=== PATIENT | female | born 1990 | race Two or more races ===

== ENCOUNTER 2025-10-02 10:23 | Inpatient (IN) | payer MEDICAID, OTHER ==
[~2025-10-02] VITALS: Ht 157.5 cm; Wt 64.0 kg
[2025-10-02 13:17] LABS: Hematocrit 38.8 % (36.0-46.0); Hemoglobin 13.2 g/dL (12.2-16.2); Mean Corpuscular Hemoglobin 29.3 pg (28.0-32.0); Mean Corpuscular Volume 85.8 fL (80.0-100.0); Nucleated Red Blood Cells % 0.0 %
[2025-10-02 13:20] LABS: Urine Protein, UAD Negative (Negative)
[2025-10-02 13:24] LABS: Chloride 105 mmol/L (98-107); Potassium 4.3 mmol/L (3.5-5.1); Sodium 141 mmol/L (136-145)
[2025-10-02 13:25] LABS: Anion Gap 9 (5-15); Carbon Dioxide 27 mmol/L (20-31)
[2025-10-02 13:26] LABS: Calcium 10.0 mg/dL (8.7-10.4)
[2025-10-02 13:30] LABS: BUN/Creatinine Ratio 13.0 (10.0-20.0); Blood Urea Nitrogen 9 mg/dL (9-23); Glucose 95 mg/dL (74-106)
--- NOTE | 2025-10-02 13:34 | ED.PDOC ---
History of Present Illness HPI Comments 35-year-old female brought in by ambulance with a chief complaint of dizziness. Patient reports waking up at 8:30 a.m. this morning with dizziness, associated with near syncopal episode, yellow emesis, lower extremity shaking, left extremities numbness and a severe headache. Patient notes on having had a bowel movement status post waking up. Patient states on currently having healing to her upper and lower left extremities status post numbness. Denies any other symptoms at this time. Denies chills, fever, /D, SOB, CP. No other associated symptoms, modifiers, recent injuries or sick contacts present at this time. 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 Family History Family History: Reviewed,noncontributory to illness, Unknown Social History Smoker: Non-Smoker Alcohol: Denies ETOH Use Drugs: Denies Drug Use Lives In: Home Constitutional: denies: chills, diaphoresis, fatigue, fever, malaise, sweats, weakness, others EENTM: denies: blurred vision, double vision, ear bleeding, ear discharge, ear drainage, ear pain, ear ringing, eye pain, eye redness, hearing loss, mouth pain, mouth swelling, nasal discharge, nose bleeding, nose congestion, nose pain, photophobia, tearing, throat pain, throat swelling, voice changes, others Respiratory: denies: cough, hemoptysis, orthopnea, SOB at rest, shortness of breath, SOB with excertion, stridor, wheezing, others Cardiovascular: reports: syncope (Near syncopal); denies: chest pain, dizzy spells, diaphoresis, Dyspnea on exertion, edema, irregular heart beat, left arm pain, lightheadedness, palpitations, PND, others Gastrointestinal: reports: nausea, vomiting; denies: abdomen distended, abdominal pain, blood streaked bowels, constipated, diarrhea, dysphagia, difficulty swallowing, hematemesis, melena, poor appetite, poor fluid intake, rectal bleeding, rectal pain, others Genitourinary: denies: abnormal vagina bleeding, burning, dyspareunia, dysuria, flank pain, frequency, hematuria, incontinence, pain, , vagina discharge, urgency, others Neurological: reports: dizziness, headache, left sided numbness; denies: fainting, left sided weakness, numbness, paresthesia, pre-existing deficit, right sided numbness, right sided weakness, seizure, speech problems, tingling, tremors, weakness, others Musculoskeletal: denies: back pain, gout, joint pain, joint swelling, muscle pain, muscle stiffness, neck pain, others Integumetry: denies: bruises, change in color, change in hair/nails, dryness, laceration, lesions, lumps, rash, wounds, others Allergic/Immunocompromised: denies: Difficulty Healing, Frequent Infections, Hives, Itching, others Hematologic/Lymphatic: denies: anemia, blood clots, easy bleeding, easy bruising, swollen glands, others Endocrine: denies: excessive hunger, excessive sweating, excessive thirst, excessive urination, flushing, intolerance to cold, intolerance to heat, u nexplained weight gain, unexplained weight loss, others Psychiatric: denies: anxiety, bipolar disorder, depression, hopeless, panic disorder, schizophrenia, sleepless, suicidal, others All Other Systems: Reviewed and Negative Physical Exam General Appearance: No Apparent Distress, Normal HEENT: Normal ENT Inspection, Pharynx Normal, TMs Normal Neck: Full Range of Motion, Non-Tender, Normal, Normal Inspection Respiratory: Chest Non-Tender, Lungs Clear, No Accessory Muscle Use, No Respiratory Distress, Normal Breath Sounds Cardiovascular: No Edema, No JVD, No Murmur, No Gallop, Normal Peripheral P ulses, Regular Rate/Rhythm Breast Exam: Deferred Gastrointestinal: No Organomegaly, Non Tender, No Pulsatile Mass, Normal Bowel Sounds, Soft Genitalia: Deferred Pelvic: Deferred Rectal: Deferred Extremities: No calf tenderness, Normal capillary refill, Normal inspection, Normal range of motion, Non-tender, No pedal edema Musculoskeletal : Apperance: Normal Neurologic: Alert, shopping investigator II-XII nml as Tested, No Motor Deficits, Normal Affect, Normal Mood, No Sensory Deficits Cerebellar Function: Normal Reflexes: Normal Skin: Dry, Normal Color, Warm Lymphatic: No Adenopathy Was a procedure done? Was a procedure done?: No Differential Dx Considerations may include: mdm X-Ray, Labs, Meds, VS Vital Signs Date Time Temp Pulse Resp B/P (MAP) Pulse Ox O2 Delivery O2 Flow Rate FiO2 10/02/25 11:07 97.8 100 18 134/95 100 97.8 Lab Test 10/02/25 12:59 10/02/25 11:42 Range/Units White Blood Count 6.8 4.4-10.8 10^3/uL Red Blood Count 4.52 4.0-5.20 10^6/uL Hemoglobin 13.2 12.2-16.2 g/dL Hematocrit 38.8 36.0-46.0 % Mean Corpuscular Volume 85.8 80.0-100.0 fL Mean Corpuscular Hemoglobin 29.3 28.0-32.0 pg Mean Corpuscular Hemoglobin Concent 34.1 32.0-36.0 g/dL Red Cell Distribution Width 13.4 11.8-14.3 % Platelet Count 293 140-450 10^3/uL Mean Platelet Volume 7.6 6.9-10.8 fL Neutrophils (%) (Auto) 82.1 H 37.0-80.0 % Lymphocytes (%) (Auto) 12.9 10.0-50.0 % Monocytes (%) (Auto) 4.3 0.0-12.0 % Eosinophils (%) (Auto) 0.3 0.0-7.0 % Basophils (%) (Auto) 0.4 0.0-2.0 % Neutrophils # (Auto) 5.6 1.6-8.6 10 ^3/uL Lymphocytes # (Auto) 0.9 0.4-5.4 10 ^3/uL Monocytes # (Auto) 0.3 0-1.3 10 ^3/uL Eosinophils # (Auto) 0 0-0.8 10 ^3/uL Basophils # (Auto) 0 0-0.2 10 ^3/uL Nucleated Red Blood Cells 0.0 % Sodium Level 141 136-145 mmol/L Potassium Level 4.3 3.5-5.1 mmol/L Chloride Level 105 98-107 mmol/L Carbon Dioxide Level 27 20-31 mmol/L Anion Gap 9 5-15 Blood Urea Nitrogen 9 9-23 mg/dL Creatinine 0.69 0.550-1.02 mg/dL Glomerular Filtration Rate Calc 117 >90 mL/min BUN/Creatinine Ratio 13.0 10.0-20.0 Serum Glucose 95 74-106 mg/dL Calcium Level 10.0 8.7-10.4 mg/dL Troponin I High Sensitivity < 3 L </=34 ng/L Urine Color Light-yellow Yellow Urine Clarity Clear Clear Urine pH 7.0 5.0-9.0 Urine Specific [place] 1.006 1.001-1.035 Urine Protein Negative Negative Urine Ketones Negative Negative Urine Blood 2+ H Negative /uL Urine Nitrite Negative Negative Urine Bilirubin Negative Negative Urine Urobilinogen Normal Negative mg/dL Urine Leukocyte Esterase Trace Negative /uL Urine RBC 1 0 - 4 /hpf Urine Microscopic WBC 4 0-5 /HPF Urine Squamous Epithelial Cells Few <5 /hpf Urine Bacteria None seen None Seen /hpf Urine Glucose Normal Normal mg/dL Urine Test Negative Negative Time of 1ST Reevaluation: 13:30 Reevaluation 1ST: Unchanged Patient Education/Counseling: Diagnosis, Treatment, Prognosis Family Education/Counseling: Diagnosis, Treatment, Prognosis Additional Information MEDICAL DECISION MAKING (HIGH COMPLEXITY 28303): The patient is a 35-year-old previously healthy female presenting with near syncope and intermittent numbness and tingling of the left arm and leg, now resolved. Despite symptom resolution, her presentation is concerning for a suspected transient ischemic attack (TIA) or other neurologic process requiring urgent inpatient evaluation. Data Reviewed / Independent Interpretation: I independently reviewed all diagnostic studies obtained in the ED: CBC, CMP, and urinalysis were benign, without metabolic, infectious, or hematologic abnormalities. CT brain was independently interpreted by me and is benign, showing no acute hemorrhage, mass effect, midline shift, or early ischemia. Serial neurologic exams were performed and remained stable, though symptoms had already resolved by the time of evaluation. Even with normal studies, the transient unilateral sensory deficits combined with near-syncope represent a neurologically high-risk presentation. Assessment, Differential & Management: Differential diagnosis includes: Suspected TIA Early ischemic stroke not yet visible on CT Demyelinating disease (e.g., MS) Seizure with postictal sensory disturbance Complex migraine Cardiac arrhythmia or perfusion-related near syncope Anxiety or functional cause (diagnosis of exclusion) Given the unilateral sensory symptoms and near-syncope, TIA remains the leading concern despite her young age and lack of major risk factors. A normal CT does not exclude ischemia or TIA. She is at risk for neurologic deterioration, recurrent symptoms, or progression to stroke. Management in the ED included serial neurologic assessments, continuous cardiac monitoring, review of diagnostics, and discussion with the admitting team. Symptoms are resolved but high-risk features persist. Risk / Disposition: Due to concern for suspected TIA, need for MRI/MRA, possible cardiac monitoring, and neurology-directed evaluation, inpatient admission is medically necessary. Neurology consultation will be obtained. This encounter involves evaluation of a high-risk presenting problem with high data complexity and high morbidity risk, consistent with High-Complexity MDM (Level 5). CRITICAL CARE TIME: 36 MINUTES A total of 36 minutes of critical care time was provided, exclusive of separately billable procedures. Critical care was required due to the immediate potential for neurologic deterioration and risk of stroke progression in the setting of suspected TIA with near-syncope and unilateral neurologic symptoms. Critical care activities included: Continuous neurologic and hemodynamic monitoring Serial neurologic examinations Independent interpretation of CT imaging and laboratory data Evaluation of potential cardiac contributors to near syncope Development and adjustment of diagnostic and monitoring plan Coordination of care with nursing staff, admitting team, and neurology High-intensity medical decision making due to potential for rapid clinical decline The patient remained at high risk for sudden neurologic deterioration, warranting critical care services. SEPSIS Sepsis Screen Date sepsis recognized/suspect: Oct 02, 2025 Time Sepsis recognized/suspect: 1030 Recent Procedure: No On Antibiotic Therapy: No Respiratory Rate >20: No Heart Rate >90: No Temp<36 C (96.8 F) or >38.3 C: No SBP <90 or MAP <65 mmHG: No New Acute Mental Status Change: No Is the patient on CPAP, BIPAP,: No Physician Orders Electrocardigram (10/02/25 11:48) Head Without Contrast (10/02/25 12:46) Chest Portable (10/02/25 12:46) Vital Signs Date Time Temp Pulse Resp B/P (MAP) Pulse Ox O2 Delivery O2 Flow Rate FiO2 10/02/25 11:07 97.8 100 18 134/95 100 97.8 Laboratory Tests Test 10/02/25 12:59 White Blood Count 6.8 10^3/uL (4.4-10.8) Departure 1 Departure Time of Disposition: 14:56 Impression: Primary Impression: Left arm numbness Additional Impressions: Left leg numbness Near syncope Disposition: ADMITTED INPATIENT Admit to: Med Surg Condition: Guarded Critical Care Note Critical Care Time?: Yes Stability Stability form required: No I personally scribed for ABIGAIL REBOLLAR MD ([email or web address]) on 10/02/25 at 13:33. Electronically submitted by Erich Be ([email or web address]). ABIGAIL REBOLLAR MD Oct 02, 2025 13:33
--- NOTE | 2025-10-02 14:01 | DVH ---
CHEST RADIOGRAPH Indication: left arm and leg numbness Technique: Single frontal view of the chest was obtained COMPARISON: None FINDINGS: Lines and Tubes: None Lungs: Clear Pleura: No effusion. No pneumothorax. Cardiomediastinal contours: Unremarkable Bones: Unremarkable IMPRESSION: No acute disease.
--- NOTE | 2025-10-02 14:19 | DVH ---
EXAM: CT HEAD WITHOUT CONTRAST INDICATION: left arm and leg numbness TECHNIQUE: CT of the head without intravenous contrast. Radiation Dose : 1. Head: CT Dose: CTDI volume is 52.39 mGy. Dose-length product is 755.91 mGy*cm The dose indicators for CT are the volume Computed Tomography (CT) Dose Index (CTDIvol) and the Dose Length Product (DLP), and are measured in units of mGy and mGy-cm, respectively. These indicators are not patient dose, but values generated from the CT scanner acquisition factors. The report includes radiation exposure data for exposures received during this examination. COMPARISON: None FINDINGS: There is no evidence of acute intracranial hemorrhage, extra-axial collection, mass effect, midline shift, herniation or hydrocephalus. The ventricles, sulci and cisterns are age appropriate. The tran-white differentiation is intact. The visualized paranasal sinuses and mastoid air cells are clear. The surrounding soft tissues and osseous structures are unremarkable. IMPRESSION: No acute intracranial abnormality. Radiation optimization: All CT scans at this facility use at least one of these dose optimization techniques: automated exposure control mA and/or kV adjustment per patient size (includes targeted exams where dose is matched to clinical indication) or iterative reconstruction.
[2025-10-02] MEDS: LORazepam 2MG/ML-1ML VIAL IV ONE (15:59)
[2025-10-02] MEDS: LORazepam 2MG/ML-1ML VIAL ONE (16:06)
[2025-10-02] MEDS: SODIUM CHLORIDE 0.9% 1,000 ML IV ONE ×2 (16:06→16:09)
[2025-10-02 16:30] VITALS: PULSE 79; RESP 17; O2SAT 95
[2025-10-02] MEDS: METOCLOPRAMIDE HCL 5MG/ml INJ 2ml VIAL IV ONE (16:41)
[2025-10-02] MEDS: ACETAMINOPHEN 325 MG TAB PO ONE (16:41)
[2025-10-02] MEDS ORDERED: ONDANSETRON HCL 4 MG/2 ML VIAL IV PRN (21:00)
[2025-10-02] MEDS ORDERED: DOCUSATE SOD 100 MG CAP PO PRN (21:00)
[2025-10-02] MEDS ORDERED: HYDROcodone-ACET 5/325MG TAB PO PRN (21:00)
[2025-10-02] MEDS ORDERED: ACETAMINOPHEN 325 MG TAB PO PRN (21:00)
--- NOTE | 2025-10-02 21:21 | DVHHP2 ---
History of Present Illness Reason for Visit: Dizziness and giddiness History of Present Illness The patient is a 35-year-old female who denies past medical history presented to [facility] [place] with complaint of dizziness. Patient reports having dizziness this morning, associated witnessed syncopal episode, nausea, vomiting yellow emesis, lower extremity shaking, left-sided numbness, and severe headache. Patient was seen and evaluated in the ED, laboratory data shows WBC 6.8, platelets 293, sodium 141, potassium 4.3, BUN nine, creatinine 0.69, glucose 95, calcium 10.0, troponin < 3, blood pressure 95/59, heart rate 104, temperature 98.4 F, O2 saturation 99% on room air. Head CT showed no acute intracranial abnormality. Chest x-ray show no acute disease. Please see medication orders section in the computer. On my assessment, sister at bedside, patient denied chest pain, no diaphoresis, headache, shortness of breaths, no diarrhea, nausea, vomiting, fever, no chills. Patient was admitted for further evaluation and medical management. Past Medical History Denies past medical history Past Surgical History Denies all surgeries Family History Reviewed, noncontributory to the management of this case. Past Social History The patient lives at home, denies smoking, alcohol or illicit drugs abuse. Review of Systems Constitutional: Yes: Weakness; No: Fever, Chills, Sweats, Malaise, Other Eyes: No: Pain, Vision change, Conjunctivae inflammation, Eyelid inflammation, Other, Redness ENT: No: Ear pain, Ear discharge, Nose pain, Nose discharge, Nose congestion, Mouth pain, Mouth swelling, Throat pain, Throat swelling, Other Respiratory: No: Cough, Dry, Shortness of breath, SOB with excertion, Wheezing, Hemoptysis, Pleuritic Pain, Sputum, Wheezing, Other Cardiovascular: Other (Syncope); No: Chest Pain, Palpitations, Orthopnea, Paroxysmal Noc. Dyspnea, Edema, Lt Headedness Gastrointestinal: Nausea, Vomiting; No: Abdominal Pain, Diarrhea, Constipation, Melena, Hematochezia, Other Genitourinary: No Dysuria, No Frequency, No Incontinence, No Hematuria, No Re tention, No Other Musculoskeletal: No: other, neck pain, shoulder pain, arm pain, back pain, hand pain, leg pain, foot pain Skin: No: Rash, Lesions, Jaundice, Bruising, Other Neurological: Numbness (Left-sided), Other (Dizziness, headache.); No: Weakness, Incoordination, Change in speech, Confusion, Seizures Allergies: Coded Allergies: NO KNOWN ALLERGIES (Unverified , 10/02/25) Medications Current Medications Medications Dose Ordered Sig/Alistair Route Start Time Stop Time Status Last Admin Dose Admin Sodium Chloride 10 ml Q8HR IV 10/02/25 22:00 Acetaminophen/ Hydrocodone Bitart 1 tab Q4HP PRN PO 10/02/25 21:00 Ondansetron HCl 4 mg Q4HP PRN IV 10/02/25 21:00 Docusate Sodium 100 mg BIDPRN PRN PO 10/02/25 21:00 Acetaminophen 650 mg Q6HP PRN PO 10/02/25 21:00 Exam Vital Signs Vital Signs Date Time Temp Pulse Resp B/P (MAP) Pulse Ox O2 Delivery O2 Flow Rate FiO2 10/02/25 19:30 98.4 104 18 95/59 (71) 99 98.4 10/02/25 19:30 Room Air* 0 21 General Appearance: Alert, Oriented X3, Cooperative, No acute distress HEENT: Atraumatic, PERRLA, EOMI, Mucous membr. moist/pink Respiratory: Clear to auscultation, Normal air movement Cardiovascular: Regular rate, Normal S1, Normal S2, No murmurs Abdominal: Normal bowel sounds, Soft, No tenderness, No hepatospenomegaly, No masses Extremities: No clubbing, No cyanosis, No edema, Normal pulses, No tenderness/swelling Skin: No rashes, No significant lesion Neuro: Normal speech, Normal tone, Sensation intact, Cranial nerves 3-12 NL, Reflexes 2+, Other (Generalized weakness) Psych/Mental Status: Mental status NL, Mood NL Labs/Xrays Labs Test 10/02/25 12:59 10/02/25 11:42 Range/Units White Blood Count 6.8 4.4-10.8 10^3/uL Red Blood Count 4.52 4.0-5.20 10^6/uL Hemoglobin 13.2 12.2-16.2 g/dL Hematocrit 38.8 36.0-46.0 % Mean Corpuscular Volume 85.8 80.0-100.0 fL Mean Corpuscular Hemoglobin 29.3 28.0-32.0 pg Mean Corpuscular Hemoglobin Concent 34.1 32.0-36.0 g/dL Red Cell Distribution Width 13.4 11.8-14.3 % Platelet Count 293 140-450 10^3/uL Mean Platelet Volume 7.6 6.9-10.8 fL Neutrophils (%) (Auto) 82.1 H 37.0-80.0 % Lymphocytes (%) (Auto) 12.9 10.0-50.0 % Monocytes (%) (Auto) 4.3 0.0-12.0 % Eosinophils (%) (Auto) 0.3 0.0-7.0 % Basophils (%) (Auto) 0.4 0.0-2.0 % Neutrophils # (Auto) 5.6 1.6-8.6 10 ^3/uL Lymphocytes # (Auto) 0.9 0.4-5.4 10 ^3/uL Monocytes # (Auto) 0.3 0-1.3 10 ^3/uL Eosinophils # (Auto) 0 0-0.8 10 ^3/uL Basophils # (Auto) 0 0-0.2 10 ^3/uL Nucleated Red Blood Cells 0.0 % Sodium Level 141 136-145 mmol/L Potassium Level 4.3 3.5-5.1 mmol/L Chloride Level 105 98-107 mmol/L Carbon Dioxide Level 27 20-31 mmol/L Anion Gap 9 5-15 Blood Urea Nitrogen 9 9-23 mg/dL Creatinine 0.69 0.550-1.02 mg/dL Glomerular Filtration Rate Calc 117 >90 mL/min BUN/Creatinine Ratio 13.0 10.0-20.0 Serum Glucose 95 74-106 mg/dL Calcium Level 10.0 8.7-10.4 mg/dL Troponin I High Sensitivity < 3 L </=34 ng/L Urine Color Light-yellow Yellow Urine Clarity Clear Clear Urine pH 7.0 5.0-9.0 Urine Specific [place] 1.006 1.001-1.035 Urine Protein Negative Negative Urine Ketones Negative Negative Urine Blood 2+ H Negative /uL Urine Nitrite Negative Negative Urine Bilirubin Negative Negative Urine Urobilinogen Normal Negative mg/dL Urine Leukocyte Esterase Trace Negative /uL Urine RBC 1 0 - 4 /hpf Urine Microscopic WBC 4 0-5 /HPF Urine Squamous Epithelial Cells Few <5 /hpf Urine Bacteria None seen None Seen /hpf Urine Glucose Normal Normal mg/dL Urine Test Negative Negative PATIENT: JIMENEZ VINES ACCT: [id number] UNIT: [id number] : 1990 LOC: ER ROOM / BED: / AGE / SEX: 35 / F ADM STATUS: REG ER SERVICE [id number] ORDERING PHYSICIAN: ABIGAIL REBOLLAR MD PROCEDURE(s): HWOCT - HEAD WITHOUT CONTRAST REASON: left arm and leg numbness ORDER NUMBER(s): [id number], ACCESSION NUMBER(s): [id number] EXAM: CT HEAD WITHOUT CONTRAST INDICATION: left arm and leg numbness TECHNIQUE: CT of the head without intravenous contrast. Radiation Dose: 1. Head: CT Dose: CTDI volume is 52.39 mGy. Dose-length product is 755.91 mGy*cm The dose indicators for CT are the volume Computed Tomography (CT) Dose Index (CTDIvol) and the Dose Length Product (DLP), and are measured in units of mGy and mGy-cm, respectively. These indicators are not patient dose, but values generated from the CT scanner acquisition factors. The report includes radiation exposure data for exposures received during this examination. COMPARISON: None FINDINGS: There is no evidence of acute intracranial hemorrhage, extra-axial collection, mass effect, midline shift, herniation or hydrocephalus. The ventricles, sulci and cisterns are age appropriate. The tran-white differentiation is intact. The visualized paranasal sinuses and mastoid air cells are clear. The surrounding soft tissues and osseous structures are unremarkable. IMPRESSION: No acute intracranial abnormality. ORDERING PHYSICIAN: ABIGAIL REBOLLAR MD PROCEDURE(s): CXRP - CHEST PORTABLE REASON: left arm and leg numbness ORDER NUMBER(s): [id number], ACCESSION NUMBER(s): [id number] CHEST RADIOGRAPH Indication: left arm and leg numbness Technique: Single frontal view of the chest was obtained COMPARISON: None FINDINGS: Lines and Tubes: None Lungs: Clear Pleura: No effusion. No pneumothorax. Cardiomediastinal contours: Unremarkable Bones: Unremarkable IMPRESSION: No acute disease. SEPSIS Sepsis Screen Date sepsis recognized/suspect: Oct 02, 2025 Time Sepsis recognized/suspect: 1929 Recent Procedure: No On Antibiotic Therapy: No Respiratory Rate >20: No Heart Rate >90: No Temp<36 C (96.8 F) or >38.3 C: No SBP <90 or MAP <65 mmHG: No New Acute Mental Status Change: No Is the patient on CPAP, BIPAP,: No Physician Orders * Neurology Consult (10/02/25 14:50) Allergies (10/02/25 20:50) Code Status (10/02/25 20:50) Sodium Chloride Lock (Saline Lock Ns) (10/02/25 22:00) Oxygen Per Hour (10/02/25 20:50) Hydrocodone-Acet 5/325mg Tab ([place] 5/32 (10/02/25 21:00) Ondansetron Hcl (Zofran) (10/02/25 21:00) Docusate Sodium Capsule (Colace Capsule) (10/02/25 21:00) Fall Risk Precautions In Place QSHIFT (10/02/25 20:50) Complete Blood Count (10/03/25 04:00) Comprehensive Metabolic Panel (10/03/25 04:00) Cardiac Diet-2gna,Lofat,Lochol (10/03/25 Breakfast) Condition: Serious (10/02/25 20:50) Acetaminophen Tablet (Tylenol Tablet) (10/02/25 21:00) Maintain Bed Rest (10/02/25 20:50) Sequential Compression Device (10/02/25 ) Vital Signs Date Time Temp Pulse Resp B/P (MAP) Pulse Ox O2 Delivery O2 Flow Rate FiO2 10/02/25 19:30 98.4 104 18 95/59 (71) 99 98.4 10/02/25 19:30 Room Air* 0 21 10/02/25 18:11 99 16 109/69 (82) 96 10/02/25 16:30 79 17 95 Room Air* 0 21 10/02/25 16:30 98.1 79 17 114/73 (87) 95 98.1 10/02/25 16:27 74/46 (55) 100 10/02/25 15:10 96 20 98 Room Air 10/02/25 15:10 97.9 96 20 107/68 (81) 98 97.9 Laboratory Tests Test 10/02/25 12:59 White Blood Count 6.8 10^3/uL (4.4-10.8) Medications Medications Dose Ordered Sig/Alistair Route Start Time Stop Time Status Last Admin Dose Admin Acetaminophen 650 mg ONCE ONCE PO 10/02/25 15:15 10/02/25 15:16 DC 10/02/25 16:41 650 MG Lorazepam 1 mg ONCE ONCE IV 10/02/25 16:00 10/02/25 16:01 DC 10/02/25 15:59 1 MG Sodium Chloride 1,000 ml @ 1,000 mls/hr Q1H ONCE IV 10/02/25 15:15 10/02/25 16:14 DC 10/02/25 16:06 1,000 MLS/HR Sodium Chloride 1,000 ml @ 1,000 mls/hr Q1H ONCE IV 10/02/25 16:15 10/02/25 17:14 DC 10/02/25 16:09 1,000 MLS/HR Assessment/Plan Assessment/Plan Dizziness and giddiness Near syncope Left-sided numbness Generalized weakness Plan 1. Admit to telemetry unit 2. Breathing treatment 3. Pain control management 4. Management of fluids and electrolytes 5. Consultation for Neurology/hospitalist 6. Diagnostic tests head CT 7. DVT prophylaxis on SCDs 8. Repeat labs CBC, CMP in a.m. 9. Continue with current medical management 10. Treatment plan discussed with patient and RN. Patient verbalized un derstanding. Plan discussed with: Patient, Other (RN) My Orders Orders - BALJINDER PHILLIPS DNP Procedure Category Date Status Time Allergies YESI 10/02/25 In Process 20:50 Code Status CODE 10/02/25 Transmitted 20:50 Sodium Chloride Lock PHA 10/02/25 In Process (Saline Lock Ns) 22:00 Oxygen Per Hour RT 10/02/25 Transmitted 20:50 Hydrocodone-Acet PHA 10/02/25 In Process 5/325mg Tab ([place] 21:00 Ondansetron Hcl PHA 10/02/25 In Process (Zofran) 21:00 Docusate Sodium PHA 10/02/25 In Process Capsule (Colace 21:00 Fall Risk Precautions YESI 10/02/[address] 20:50 Complete Blood Count LAB 10/03/25 Verified 04:00 Comprehensive LAB 10/03/25 Verified Metabolic Panel 04:00 Cardiac DIET 10/03/25 Transmitted Diet-2gna,Lofat,Lochol Breakfast Condition: Serious YESI 10/02/25 In Process 20:50 Acetaminophen Tablet PHA 10/02/25 In Process (Tylenol Tablet) 21:00 Maintain Bed Rest YESI 10/02/25 In Process 20:50 Sequential YESI 10/02/25 In Process Compression Device Problem List: (1) Dizziness and giddiness (2) Near syncope (3) Left sided numbness (4) Generalized weakness Date of Service: Oct 02, 2025 Billing Provider: BALJINDER PHILLIPS DNP Common Visit Codes: 86550-[id number] INP/OBS CARE (HIGH) BALJINDER PHILLIPS DNP Oct 02, 2025 21:21
[2025-10-02] MEDS ORDERED: NITROGLYCERIN 0.4 MG SL TAB SL PRN (21:30)
[2025-10-02] MEDS ORDERED: MORPHINE SULFATE INJ 2 MG/ml SYRG IV PRN (21:30)
[2025-10-02] MEDS: SODIUM CHLOR 0.9% PF (SALINE LOCK) 10ML VIAL/SYR IV SCH (22:00)
[2025-10-03] VITALS (8 sets, daily range): BP systolic 104–122; BP diastolic 66–83; PULSE 75–88; RESP 16–18; TEMP 97.5–98.6; O2SAT 95–100
--- NOTE | 2025-10-03 06:07 | DVHINCON2 ---
Date of Consultation Date Date: 10/03/25 History of Present Illness History of Present Illness [place] [facility] Note # Demographics Consult Type: General Neurology Patient Location: Inpatient First Name: JENNIFER Last Name: JASMYN Date of : 1990 Age: 35 Gender: Female Facility: [facility] Time of Initial Page (): 10/03/2025 06:00 First Contact with Site (): 10/03/2025 06:00 # HPI History: 35yof who presents with dizziness. She says symptoms started yesterday, headache, and L sided numbness. # Scores Time of exam and NIHSS (): 10/03/2025 06:04 Level of Consciousness 1a: [0] = Alert; keenly responsive LOC Questions 1b: [0] = Answers both questions correctly LOC Commands 1c: [0] = Performs both tasks correctly Best Gaze 2: [0] = Normal Visual 3: [0] = No visual loss Facial Palsy 4: [0] = Normal symmetrical movements Motor Arm Left 5a: [0] = No drift Motor Arm Right 5b: [0] = No drift Motor Leg Left 6a: [0] = No drift Motor Leg Right 6b: [0] = No drift Limb Ataxia 7: [0] = Absent Sensory 8: [0] = Normal Best Language 9: [0] = No aphasia Dysarthria 10: [0] = Normal Extinction and Inattention 11: [0] = No abnormality NIHSS Total: 0 # Assessment Impression: - Other vertigo and L sided numbness - need to r/o demyelinating disease # Plan Imaging: (urgency: routine): - MRI Brain with AND without contrast MR C spine w and wo contrast Other: - If patient has any neurological deterioration please call me back immediately Additional Recommendations: Further workup depending on results of MRI # Logistics Attestation of consult completion: The patient is located at: [facility]. Facility staff participated in the visit. I performed this telemedicine visit from my offsite office utilizing interactive 2 way audio and visual telecommunication technology at the request of the onsite inpatient provider. Total time spent in telemedicine encounter: I spent 23 minutes reviewing clinical data and/or imaging, obtaining history, examining the patient, communicating with the onsite care team, and in preparation of this report. # Demographics First Name: JENNIFER Last Name: JASMYN Facility: [facility] Family History Family History Family History: FH: diabetes mellitus G8 FATHER FH: kidney failure G8 FATHER High cholesterol G8 FATHER Allergies: Coded Allergies: NO KNOWN ALLERGIES (Unverified , 10/02/25) Home Meds No Active Prescriptions or Reported Meds Current Medications Current Medications Medications (Trade) Dose Ordered Sig/Alistair Route PRN Reason Start Time Stop Time Status Last Admin Sodium Chloride (Saline Lock Ns) 10 ml Q8HR IV 10/02/25 22:00 10/03/25 02:00 Acetaminophen/ Hydrocodone Bitart ([place] 5/325MG Tab) 1 tab Q4HP PRN PO MODERATE PAIN (4-6 PAIN SCALE) 10/02/25 21:00 Ondansetron HCl (Zofran) 4 mg Q4HP PRN IV NAUSEA / VOMITING 10/02/25 21:00 Docusate Sodium (Colace Capsule) 100 mg BIDPRN PRN PO FOR CONSTIPATION 10/02/25 21:00 Acetaminophen (Tylenol Tablet) 650 mg Q6HP PRN PO PAIN SCALE 1-3 OR TEMP>100.4 10/02/25 21:00 Nitroglycerin (Ntrostat Sublingual) 0.4 mg Q5MINP PRN SL FOR CHEST PAIN 10/02/25 21:30 Morphine Sulfate 2 mg Q30M PRN IV FOR CHEST PAIN 10/02/25 21:30 Physical Examination General Examination: Last Vital sign Vital Signs Date Time Temp Pulse Resp B/P (MAP) Pulse Ox O2 Delivery O2 Flow Rate FiO2 10/03/25 04:48 97.7 81 17 113/73 (86) 99 97.7 10/03/25 02:20 Room Air* 0 21 General: General: No apparent distress, appears comfortable. Cooperative. Neurological Examination: Neurological Examination: Mental Status: Cranial Nerves: Motor Examination: Reflexes: Sensory: Coordination: Gait: Labs: Labs: Laboratory Tests Test 10/02/25 11:42 10/02/25 12:59 Range/Units Urine Color Light-yellow Yellow Urine Clarity Clear Clear Urine pH 7.0 5.0-9.0 Urine Specific [place] 1.006 1.001-1.035 Urine Protein Negative Negative Urine Ketones Negative Negative Urine Blood 2+ H Negative /uL Urine Nitrite Negative Negative Urine Bilirubin Negative Negative Urine Urobilinogen Normal Negative mg/dL Urine Leukocyte Esterase Trace Negative /uL Urine RBC 1 0 - 4 /hpf Urine Microscopic WBC 4 0-5 /HPF Urine Squamous Epithelial Cells Few <5 /hpf Urine Bacteria None seen None Seen /hpf Urine Glucose Normal Normal mg/dL Urine Test Negative Negative White Blood Count 6.8 4.4-10.8 10^3/uL Red Blood Count 4.52 4.0-5.20 10^6/uL Hemoglobin 13.2 12.2-16.2 g/dL Hematocrit 38.8 36.0-46.0 % Mean Corpuscular Volume 85.8 80.0-100.0 fL Mean Corpuscular Hemoglobin 29.3 28.0-32.0 pg Mean Corpuscular Hemoglobin Concent 34.1 32.0-36.0 g/dL Red Cell Distribution Width 13.4 11.8-14.3 % Platelet Count 293 140-450 10^3/uL Mean Platelet Volume 7.6 6.9-10.8 fL Neutrophils (%) (Auto) 82.1 H 37.0-80.0 % Lymphocytes (%) (Auto) 12.9 10.0-50.0 % Monocytes (%) (Auto) 4.3 0.0-12.0 % Eosinophils (%) (Auto) 0.3 0.0-7.0 % Basophils (%) (Auto) 0.4 0.0-2.0 % Neutrophils # (Auto) 5.6 1.6-8.6 10 ^3/uL Lymphocytes # (Auto) 0.9 0.4-5.4 10 ^3/uL Monocytes # (Auto) 0.3 0-1.3 10 ^3/uL Eosinophils # (Auto) 0 0-0.8 10 ^3/uL Basophils # (Auto) 0 0-0.2 10 ^3/uL Nucleated Red Blood Cells 0.0 % Sodium Level 141 136-145 mmol/L Potassium Level 4.3 3.5-5.1 mmol/L Chloride Level 105 98-107 mmol/L Carbon Dioxide Level 27 20-31 mmol/L Anion Gap 9 5-15 Blood Urea Nitrogen 9 9-23 mg/dL Creatinine 0.69 0.550-1.02 mg/dL Glomerular Filtration Rate Calc 117 >90 mL/min BUN/Creatinine Ratio 13.0 10.0-20.0 Serum Glucose 95 74-106 mg/dL Calcium Level 10.0 8.7-10.4 mg/dL Troponin I High Sensitivity < 3 L </=34 ng/L Assessment/Plan Assessment/Plan Assessment and Plan:Jennifer Grayson is a 35 year old female who presents with Plan discussed with: Patient GERA MOTLEY MD Oct 03, 2025 06:07
[2025-10-03 06:24] LABS: Hematocrit 33.1 % (36.0-46.0); Hemoglobin 11.4 g/dL (12.2-16.2); Mean Corpuscular Hemoglobin 29.6 pg (28.0-32.0); Mean Corpuscular Volume 86.0 fL (80.0-100.0); Nucleated Red Blood Cells % 0.0 %
[2025-10-03 06:39] LABS: Alanine Aminotransferase 13 U/L (7-40); Alkaline Phosphatase 58 U/L (46-116); Calcium 9.1 mg/dL (8.7-10.4); Carbon Dioxide 26 mmol/L (20-31); Glucose 80 mg/dL (74-106); Potassium 3.7 mmol/L (3.5-5.1)
[2025-10-03 06:40] LABS: Albumin 3.8 g/dL (3.2-4.8); Anion Gap 9 (5-15); BUN/Creatinine Ratio 11.9 (10.0-20.0); Bilirubin, Total 0.5 mg/dL (0.2-1.0); Sodium 144 mmol/L (136-145); Total Protein 6.1 g/dL (5.7-8.2)
[2025-10-03 06:44] LABS: Blood Urea Nitrogen 8 mg/dL (9-23); Chloride 109 mmol/L (98-107)
--- NOTE | 2025-10-03 15:10 | DVHPN2 ---
Subjective The patient seen and examined at bedside. No weakness or numbness. Reviewed: Care Plan, H&P, Labs, Medications, Previous Orders, Radiology Changes from previous H/P or p: No Changes Eyes: No Pain, No Vision change, No Conjunctivae inflammation, No Eyelid inflammation, No Other, No Redness ENT: No Ear pain, No Ear discharge, No Nose pain, No Nose discharge, No Nose congestion, No Mouth pain, No Mouth swelling, No Throat pain, No Throat swelling, No Other Cardiovascular: No Chest Pain, No Palpitations, No Orthopnea, No Paroxysmal Noc. Dyspnea, No Edema, No Lt Headedness; Other (Syncope) Respiratory: No Cough, No Dry, No Shortness of breath, No SOB with excertion, No Wheezing, No Hemoptysis, No Pleuritic Pain, No Sputum, No Other Gastrointestinal: Nausea, Vomiting; No Abdominal Pain, No Diarrhea, No Constipation, No Melena, No Hematochezia, No Other Genitourinary: No Dysuria, No Frequency, No Incontinence, No Hematuria, No Retention, No Other Musculoskeletal: No other, No neck pain, No shoulder pain, No arm pain, No back pain, No hand pain, No leg pain, No foot pain Skin: No Rash, No Lesions, No Jaundice, No Bruising, No Other Objective Vitals Vital Signs Date Time Temp Pulse Resp B/P (MAP) Pulse Ox O2 Delivery O2 Flow Rate FiO2 10/03/25 12:49 98.3 75 16 109/66 (80) 98 98.3 10/03/25 08:10 Room Air* 0 21 Intake/Output Intake and Output 10/03/25 07:00 Intake Total 2800 ml Balance 2800 ml Intake Oral 800 ml IV Total 2000 ml # Voids 1 General Appearance: Alert, Oriented X3, Cooperative, No acute distress HEENT: Atraumatic, PERRLA, EOMI, Mucous membr. moist/pink Neck: Supple Lungs: Clear to auscultation, Normal air movement Cardiovascular: Regular rate, Normal S1, Normal S2, No murmurs, Gallops, Rubs Abdomen: Normal bowel sounds, Soft, No tenderness Neuro: Cranial nerves 3-12 NL Psych/Mental Status: Mental status NL Medications Current Medications Medications Dose Ordered Sig/Alistair Route Start Time Stop Time Status Last Admin Dose Admin Sodium Chloride 10 ml Q8HR IV 10/02/25 22:00 10/03/25 13:44 10 ML Acetaminophen/ Hydrocodone Bitart 1 tab Q4HP PRN PO 10/02/25 21:00 Ondansetron HCl 4 mg Q4HP PRN IV 10/02/25 21:00 Docusate Sodium 100 mg BIDPRN PRN PO 10/02/25 21:00 Acetaminophen 650 mg Q6HP PRN PO 10/02/25 21:00 Nitroglycerin 0.4 mg Q5MINP PRN SL 10/02/25 21:30 Morphine Sulfate 2 mg Q30M PRN IV 10/02/25 21:30 Laboratory Results Laboratory Tests 10/03/25 05:11 Chemistry Test 10/03/25 05:11 Albumin 3.8 g/dL (3.2-4.8) Calcium Level 9.1 mg/dL (8.7-10.4) Total Protein 6.1 g/dL (5.7-8.2) LFT Test 10/03/25 05:11 Alanine Aminotransferase (ALT) 13 U/L (7-40) Alkaline Phosphatase 58 U/L (46-116) Aspartate Amino Transferase (AST) 12 U/L (13-40) L Total Bilirubin 0.5 mg/dL (0.2-1.0) Urinalysis Test 10/02/25 11:42 Urine Color Light-yellow (Yellow) Urine Clarity Clear (Clear) Urine pH 7.0 (5.0-9.0) Urine Specific [place] 1.006 (1.001-1.035) Urine Protein Negative (Negative) Urine Ketones Negative (Negative) Urine Blood 2+ /uL (Negative) H Urine Nitrite Negative (Negative) Urine Bilirubin Negative (Negative) Urine Urobilinogen Normal mg/dL (Negative) Urine Leukocyte Esterase Trace /uL (Negative) Urine RBC 1 /hpf (0 - 4) Urine Microscopic WBC 4 /HPF (0-5) Urine Squamous Epithelial Cells Few /hpf (<5) Urine Bacteria None seen /hpf (None Seen) Urine Glucose Normal mg/dL (Normal) Urine Test Negative (Negative) Labs and/or images reviewed: Labs reviewed by me Assessment/Plan Assessment/Plan Dizziness and giddiness Near syncope Left-sided numbness Generalized weakness Plan Continue current management. CT head review and negative. [facility] tele neurologist consult input appreciate. Will wait for dr Delgado regarding to recommend of MRI cervical spine and thoracic spine. As right now, I think she only need MRI of head. Will wait for Dr Delgado input. Plan discussed with: Patient Date of Service: Oct 03, 2025 Billing Provider: VILMA FRANCO MD Common Visit Codes: [id number] INP/OBS CARE(HIGH) VILMA FRANCO MD Oct 03, 2025 15:09
--- NOTE | 2025-10-03 17:19 | DVHINCON2 ---
Date of service: Oct 03, [address] Izaguirre Reason for Consultation Left arm and leg numbness History of Present Illness Ms. Grayson is a 35 years old right-handed female otherwise healthy, she came to the [facility] on 10/02/2025 with a chief complaint of dizziness, at this time, she is alert and fully oriented, she provided the following history When she woke up around 530 in the morning on 10/02/25, he has been high with dizziness/spinning sensation, blurry vision which lasted for a few minutes with associated mild nausea, and then when she was trying to walk, she noticed a poor balance, she had vomiting later. She reports that she had never had similar problem before, so far this is only event in her life When she was in the ambulance, she developed left-sided numbness and weakness involving the arms and legs in that she was not able to move the left leg, her symptoms started to improve about 35-40 minutes late, again this only event in her life In the ER, when her nurse was pulling IV lines, the patient had a hot feeling, she became sweaty, and he passed out for unknown duration. He also had muscle spasms in the hands, legs, and she could not move for 10-15 minutes. According to her nurse note, the patient started to get a pale and cold to touch, stated she felt she was going to faint, she started to hyperventilating that caused carpopedal spasms her blood pressure dropped to 76/46, 100%, temp 97.9, pulse 89. She was moved via wheelchair to a bed. (RN note 10/02/25 15:26: Patient IV was placed, pateint started to get pale and cold to the touch. Stated she felt like she was going to faint. Patient started to hyperventilating causing for hands to carpopedal spasm. Patients fluids running. Patients vitals reassessed, blood pressure started to drop 76/46, 100%, temp 97.9, pulse 89. Patient was moved via wheelchair to bed provider ABIGAIL REBOLLAR MD made aware. Verbal orders given to charge nurse by provider. Provider at bedside) [facility] 10/03/25: NIHSS: 0 CBC, 10/02/2025: Unremarkable BMP 10/02/2025: Unremarkable Liver function tests, 10/03/2025: Unremarkable CT head, 10/02/2025: No acute intracranial abnormality Past Medical History Denies Past Surgical History Appendectomy, tubal ligation, mass removed from right breast Family History: FH: diabetes mellitus G8 FATHER FH: kidney failure G8 FATHER High cholesterol G8 FATHER Family History Diabetes, dyslipidemia, kidney failure Social History She denies a history of tobacco smoking, drug and alcohol abuse Allergies: Coded Allergies: NO KNOWN ALLERGIES (Unverified , 10/02/25) Home Meds No Active Prescriptions or Reported Meds Current Medications Current Medications Medications (Trade) Dose Ordered Sig/Alistair Route PRN Reason Start Time Stop Time Status Last Admin Sodium Chloride (Saline Lock Ns) 10 ml Q8HR IV 10/02/25 22:00 10/03/25 13:44 Acetaminophen/ Hydrocodone Bitart ([place] 5/325MG Tab) 1 tab Q4HP PRN PO MODERATE PAIN (4-6 PAIN SCALE) 10/02/25 21:00 Ondansetron HCl (Zofran) 4 mg Q4HP PRN IV NAUSEA / VOMITING 10/02/25 21:00 Docusate Sodium (Colace Capsule) 100 mg BIDPRN PRN PO FOR CONSTIPATION 10/02/25 21:00 Acetaminophen (Tylenol Tablet) 650 mg Q6HP PRN PO PAIN SCALE 1-3 OR TEMP>100.4 10/02/25 21:00 Nitroglycerin (Ntrostat Sublingual) 0.4 mg Q5MINP PRN SL FOR CHEST PAIN 10/02/25 21:30 Morphine Sulfate 2 mg Q30M PRN IV FOR CHEST PAIN 10/02/25 21:30 Review of Systems As above, the other systems are negative Vital Signs Vital Signs Date Time Temp Pulse Resp B/P (MAP) Pulse Ox O2 Delivery O2 Flow Rate FiO2 10/03/25 12:49 98.3 75 16 109/66 (80) 98 98.3 10/03/25 08:10 Room Air* 0 21 Physical Exam GENERAL EXAM: General: the patient is well developed and nourished. No acute distress. HEENT: Normocephalic, neck is supple, no carotid bruits. No mass. RESPIRATORY: Normal respiratory effort with symmetrical lung expansion. Lungs clear to auscultation. CARDIOVASCULAR: Regular rate and rhythm with no murmurs. S1, S2. ABDOMEN: Soft, nontender, normal bowel sound NEUROLOGICAL: MENTAL STATUS: Awake and alert. Oriented to person, place, time and general circumstances. Able to give personal history. SPEECH, LANGUAGE, HIGHER CORTICAL FUNCTION: no aphasia or dysathria. CRANIAL NERVES: #2: Intact visual beltran to confrontation. The optic discs were sharp. #3,4,6: Pupils are equal, round and reactive. EOMs full and conjugate. No nystagmus. #5: Facial sensation intact in all three divisions bilaterally. Mandibular strength intact. #7: Facial muscles symmetrical and strength intact. #8: Hearing grossly normal to voice. #9,10: Uvula and soft palate rise in the midline. Swallow and voice are normal. #11: Trapezius and sternomastoid strength intact bilaterally. #12: Tongue midline. No fasciculations or atrophy. SENSATION: Sensation to touch and pinprick is normal. MOTOR: Normal tone in the upper and lower extremity. Normal muscle bulk. No fasciculations. No abnormal movements or posturing. Muscle strength of the major groups in the upper extremities is 5/5. Muscle strength of the major groups in the lower extremities is 5/5. REFLEXES: Deep tendon reflexes normal and symmetrical. No pathological reflexes. CEREBELLAR/COORDINATION: Finger to nose and heel to iraheta are normal bilaterally. GAIT/STATION: deferred. Labs/Diagnostic Data Labs Test 10/03/25 05:11 10/02/25 12:59 10/02/25 11:42 Range/Units White Blood Count 4.4 # 4.4-10.8 10^3/uL Red Blood Count 3.85 L 4.0-5.20 10^6/uL Hemoglobin 11.4 L 12.2-16.2 g/dL Hematocrit 33.1 #L 36.0-46.0 % Mean Corpuscular Volume 86.0 80.0-100.0 fL Mean Corpuscular Hemoglobin 29.6 28.0-32.0 pg Mean Corpuscular Hemoglobin Concent 34.4 32.0-36.0 g/dL Red Cell Distribution Width 13.2 11.8-14.3 % Platelet Count 247 140-450 10^3/uL Mean Platelet Volume 8.1 6.9-10.8 fL Neutrophils (%) (Auto) 55.2 37.0-80.0 % Lymphocytes (%) (Auto) 34.5 10.0-50.0 % Monocytes (%) (Auto) 7.8 0.0-12.0 % Eosinophils (%) (Auto) 1.9 0.0-7.0 % Basophils (%) (Auto) 0.6 0.0-2.0 % Neutrophils # (Auto) 2.4 1.6-8.6 10 ^3/uL Lymphocytes # (Auto) 1.5 0.4-5.4 10 ^3/uL Monocytes # (Auto) 0.3 0-1.3 10 ^3/uL Eosinophils # (Auto) 0.1 0-0.8 10 ^3/uL Basophils # (Auto) 0 0-0.2 10 ^3/uL Nucleated Red Blood Cells 0.0 % Sodium Level 144 136-145 mmol/L Potassium Level 3.7 3.5-5.1 mmol/L Chloride Level 109 H 98-107 mmol/L Carbon Dioxide Level 26 20-31 mmol/L Anion Gap 9 5-15 Blood Urea Nitrogen 8 L 9-23 mg/dL Creatinine 0.67 0.550-1.02 mg/dL Glomerular Filtration Rate Calc 118 >90 mL/min BUN/Creatinine Ratio 11.9 10.0-20.0 Serum Glucose 80 74-106 mg/dL Calcium Level 9.1 8.7-10.4 mg/dL Total Bilirubin 0.5 0.2-1.0 mg/dL Aspartate Amino Transferase (AST) 12 L 13-40 U/L Alanine Aminotransferase (ALT) 13 7-40 U/L Alkaline Phosphatase 58 46-116 U/L Total Protein 6.1 5.7-8.2 g/dL Albumin 3.8 3.2-4.8 g/dL Troponin I High Sensitivity < 3 L </=34 ng/L Urine Color Light-yellow Yellow Urine Clarity Clear Clear Urine pH 7.0 5.0-9.0 Urine Specific [place] 1.006 1.001-1.035 Urine Protein Negative Negative Urine Ketones Negative Negative Urine Blood 2+ H Negative /uL Urine Nitrite Negative Negative Urine Bilirubin Negative Negative Urine Urobilinogen Normal Negative mg/dL Urine Leukocyte Esterase Trace Negative /uL Urine RBC 1 0 - 4 /hpf Urine Microscopic WBC 4 0-5 /HPF Urine Squamous Epithelial Cells Few <5 /hpf Urine Bacteria None seen None Seen /hpf Urine Glucose Normal Normal mg/dL Urine Test Negative Negative Assessment Brief spells dizziness/vertigo Passing out Syncope Partial complex seizure Left-sided paresthesia and weakness Rule out TIA Carpal pedal spasms with has been ventilation, Secondary to respiratory alkalosis ? Psychogenic Syncope/presyncopal event, vasovagal Plan/Recommendation Monitoring Supportive treatment Telemetry EEG MR brain scan Syncopal precautions discussed More recommendation per clinical course Progressive poor This medical document was created using an electronic medical record system with [employer] dictation system. Although this document has been carefully reviewed, there may still be some phonetic and typographical errors. These areas are purely typographical due to imperfections of the software programs, and do not reflect any compromise in the patient's medical care. Plan discussed with: Patient, Other CHASITY ELLIS MD Oct 03, 2025 17:19
[2025-10-04 01:00] VITALS: BP 103/69; PULSE 68; RESP 18; TEMP 97.8; O2SAT 96
[2025-10-04 05:00] VITALS: BP 110/75; PULSE 76; RESP 18; TEMP 97.9; O2SAT 97
[2025-10-04 06:49] LABS: Hematocrit 34.5 % (36.0-46.0); Hemoglobin 12.0 g/dL (12.2-16.2); Mean Corpuscular Hemoglobin 29.6 pg (28.0-32.0); Mean Corpuscular Volume 85.3 fL (80.0-100.0); Nucleated Red Blood Cells % 0.0 %
[2025-10-04 06:51] LABS: Anion Gap 9 (5-15); Carbon Dioxide 27 mmol/L (20-31); Chloride 105 mmol/L (98-107); Potassium 3.9 mmol/L (3.5-5.1); Sodium 141 mmol/L (136-145)
[2025-10-04 06:53] LABS: Calcium 9.4 mg/dL (8.7-10.4)
[2025-10-04 06:57] LABS: BUN/Creatinine Ratio 17.6 (10.0-20.0); Blood Urea Nitrogen 13 mg/dL (9-23); Glucose 82 mg/dL (74-106)
[2025-10-04 08:00] VITALS: PULSE 78
[2025-10-04 09:00] VITALS: BP 108/76; PULSE 78; RESP 16; TEMP 98.6; O2SAT 97
--- NOTE | 2025-10-04 12:00 | DVHDS2 ---
Discharge Summary Date of Admission Oct 02, 2025 at 21:19 Date of Discharge: Oct 04, 2025 Admitting Diagnosis Dizziness and giddiness Near syncope Left-sided numbness Generalized weakness Labs/Diagnostic Data: Laboratory Results Test 10/04/25 05:59 10/03/25 05:11 10/02/25 12:59 10/02/25 11:42 White Blood Count 3.9 10^3/uL (4.4-10.8) Red Blood Count 4.05 10^6/uL (4.0-5.20) Hemoglobin 12.0 g/dL (12.2-16.2) Hematocrit 34.5 % (36.0-46.0) Mean Corpuscular Volume 85.3 fL (80.0-100.0) Mean Corpuscular Hemoglobin 29.6 pg (28.0-32.0) Mean Corpuscular Hemoglobin Concent 34.7 g/dL (32.0-36.0) Red Cell Distribution Width 12.7 % (11.8-14.3) Platelet Count 241 10^3/uL (140-450) Mean Platelet Volume 8.0 fL (6.9-10.8) Neutrophils (%) (Auto) 54.8 % (37.0-80.0) Lymphocytes (%) (Auto) 34.3 % (10.0-50.0) Monocytes (%) (Auto) 7.2 % (0.0-12.0) Eosinophils (%) (Auto) 2.8 % (0.0-7.0) Basophils (%) (Auto) 0.9 % (0.0-2.0) Neutrophils # (Auto) 2.1 10 ^3/uL (1.6-8.6) Lymphocytes # (Auto) 1.3 10 ^3/uL (0.4-5.4) Monocytes # (Auto) 0.3 10 ^3/uL (0-1.3) Eosinophils # (Auto) 0.1 10 ^3/uL (0-0.8) Basophils # (Auto) 0 10 ^3/uL (0-0.2) Nucleated Red Blood Cells 0.0 % Sodium Level 141 mmol/L (136-145) Potassium Level 3.9 mmol/L (3.5-5.1) Chloride Level 105 mmol/L (98-107) Carbon Dioxide Level 27 mmol/L (20-31) Anion Gap 9 (5-15) Blood Urea Nitrogen 13 mg/dL (9-23) Creatinine 0.74 mg/dL (0.550-1.02) Glomerular Filtration Rate Calc 109 mL/min (>90) BUN/Creatinine Ratio 17.6 (10.0-20.0) Serum Glucose 82 mg/dL (74-106) Calcium Level 9.4 mg/dL (8.7-10.4) Total Bilirubin 0.5 mg/dL (0.2-1.0) Aspartate Amino Transferase (AST) 12 U/L (13-40) Alanine Aminotransferase (ALT) 13 U/L (7-40) Alkaline Phosphatase 58 U/L (46-116) Total Protein 6.1 g/dL (5.7-8.2) Albumin 3.8 g/dL (3.2-4.8) Troponin I High Sensitivity < 3 ng/L (</=34) Urine Color Light-yellow (Yellow) Urine Clarity Clear (Clear) Urine pH 7.0 (5.0-9.0) Urine Specific [place] 1.006 (1.001-1.035) Urine Protein Negative (Negative) Urine Ketones Negative (Negative) Urine Blood 2+ /uL (Negative) Urine Nitrite Negative (Negative) Urine Bilirubin Negative (Negative) Urine Urobilinogen Normal mg/dL (Negative) Urine Leukocyte Esterase Trace /uL (Negative) Urine RBC 1 /hpf (0 - 4) Urine Microscopic WBC 4 /HPF (0-5) Urine Squamous Epithelial Cells Few /hpf (<5) Urine Bacteria None seen /hpf (None Seen) Urine Glucose Normal mg/dL (Normal) Urine Test Negative (Negative) Other Laboratory Tests 10/04/25 05:59 Brief Hx & Hospital Course: This is a 35 years old female with no known past medical history come into emergency department because of dizziness and weakness. Patient also had a witness syncopal episode, nausea, vomiting, yellow emesis and lower extremity shaking. After that she feel her left-sided numbness in severe headache. The patient was admitted. CT scan of the head showed no acute intracranial abnormality. Neurology was consulted. Recommend MRI of the brain and EEG. MRI brain showed no acute process. EEG showed no seizure activity. Patient this resolved. I am going to discharge her home. Advised her to follow up with primary care physician 1-2 weeks. Follow up with neurologist per schedule if continuing to have numbness and weakness. Activity as tolerated. Diet per home diet. Physical exam: HEENT: Normocephalic atraumatic pupils equal react to light and accommodation. Extraocular muscles intact, conjunctiva pink, oropharynx moist, no thrush, no exudate. Lymphatic: No lymphadenopathy Cardiovascular exam: S1, S2 was heard. No murmurs, rubs, gallops Lung: Clear on auscultation bilaterally, no wheeze, rale, rhonchi. GI: Abdominal soft, nondistended, nontenderness, positive bowel sounds. Extremity: No crepitus, cyanosis, edema. Pedal pulses present bilateral. Full range of motion. Skin: Normal turgor, no rash. Psych: Alert, oriented x3. Neurology: No focal deficits, cranial nerve II to XII grossly intact. This medical document was created using an electronic medical record system with [employer] computerized dictation system. Although this document has been carefully reviewed, there may still be some phonetic and typographical errors. These areas are purely typographical due to imperfections of the software programs, and do not reflect any compromise in the patient's medical care. Condition at Discharge: Stable Final Diagnosis/Problems List Dizziness and giddiness Near syncope Left-sided numbness Generalized weakness Discharge Disposition: Home Discharge Instruct/Medications Diet: Regular Activity: No Restrictions, As Tolerated Follow Up/Referral: pcp 1-2 weeks No Active Prescriptions or Reported Meds Discharge Statement: "Patient was advised to return to the ER or call 911 if any headaches, dizziness, shortness of breath, chest pain, abdominal pain, bleeding, fevers, or worsening of medical condition. Patient was counseled about treatment plan, medications, possible side effects, patientverbalized understanding. All questions were answered to the best of my ability. This discharge took greater then 30 minutes in planning, reviewing documentation, counseling the patient, and discussing with other team members." ASSESSMENT ASSESSMENT Assessment syncope Date of Service: Oct 04, 2025 Billing Provider: VILMA FRANCO MD Common Visit Codes: 36153-LAN/OBS DISCH DAY >30min VILMA FRANCO MD Oct 04, 2025 11:59
--- NOTE | 2025-10-04 12:43 | DVH ---
PROCEDURE: MRI OF THE BRAIN WITHOUT CONTRAST. CLINICAL INDICATION: TIA TECHNIQUE: Multiplanar, multi sequence MRI of the brain was performed without intravenous contrast. COMPARISON: CT HEAD WITHOUT CONTRAST on DOS: 10/02/25 FINDINGS: The signal characteristics of the brain parenchyma is within normal limits. There are no areas of restricted diffusion to suggest acute infarct. No evidence of space occupying mass lesion, extra-axial collections or hemorrhage is noted. The ventricles, sulci and basal cisterns are intact. There is no signal abnormality in the posterior fossa. The paranasal sinuses and mastoid air cells are well pneumatized. The orbits and nasopharynx are intact. The osseous structures are intact. The vessels of the skull base demonstrate signal void consistent with patency. IMPRESSION: 1. No acute intracranial abnormality.
[2025-10-04 13:25] VITALS: BP 117/81; PULSE 82; RESP 16; TEMP 98; O2SAT 99
[2025-10-04 16:55] VITALS: BP 112/77; PULSE 89; RESP 16; TEMP 98.4; O2SAT 97
--- NOTE | 2025-10-06 20:40 | DVHEEG2 ---
Neurology EEG Procedural Note Procedural Note EXAM DATE: 10/04/2025 REFERRING DOCTOR: Dr. Ellis TECHNIQUE: Eighteen channels of EEG, 2 channels of EOG, and 1 channel of EKG were recorded using the International 10/20 system. CLINICAL DATA: The patient was referred for an EEG evaluation for the evidence of seizure disorder. MEDICATIONS: See the chart BACKGROUND ACTIVITY: While the patient was awake, the background activity consisted of well regulated 10 Hz rhythmic waveforms, symmetrically distributed over both posterior quadrants and was reactive to eye opening. ACTIVATION: Hyperventilation: Not done Photic Stimulation: Not done Sleep: Not seen IMPRESSION: This is a normal EEG. No focal, lateralized, or epileptiform features are noted. If clinically indicated to rule out a seizure disorder, recommend repeat EEG with sleep deprivation. The EKG channel showed a regular heart rate of 84/min. [place] [address] CHASITY ELLIS MD Oct 06, 2025 20:40
== END 2025-10-04 16:59 | disposition home or self-care (01) | DRG 48 ==
LOC: ER 10:23 → EDBD 10:23 → OVERFLOW 21:19 → EAST 10-03 01:49 → TELE-EAST 10-03 04:30
PROVIDERS: ADMIT Internal Medicine; ATTEND Internal Medicine
DX: G90.89 Other disorders of autonomic nervous system (principal); E87.3 Alkalosis; G40.209 Localization-related (focal) (partial) symptomatic epilepsy and epileptic syndromes with complex partial seizures, not intractable, without status epilepticus; R42 Dizziness and giddiness; Z83.3 Family history of diabetes mellitus; Z90.49 Acquired absence of other specified parts of digestive tract
CPT/HCPCS: 36415; 70450; 70551; 71045; 80048; 80053; 81001; 81025; 84484; 85025; 95819; 96361; 96374; G0378